=== PATIENT | male | born 1985 | race Caucasian/White ===

== ENCOUNTER → 2021-12-27 | Outpatient (CLI) | payer MEDICAID, SELFPAY ==
[2021-12-27 16:55] LABS: Hematocrit 45.2 % (40-54); Hemoglobin 14.8 g/dL (13.0-16.5); Mean Corp Hgb Conc 32.7 g/dL (32-36); Mean Corpuscular Hgb 29.9 pg (27.0-32.0); Mean Corpuscular Volume 91.3 fL (80-94); Mean Platelet Vol. 9.3 fl (6.2-12.0); Platelet Count 270 K/mm3 (150-450); RBC Distribution Width CV 13.4 % (11.6-14.6); RBC Distribution Width SD 45.1 fl (35.1-43.9); Red Blood Count 4.95 M/mm3 (4.6-6.2); White Blood Count 6.2 K/mm3 (4.4-11.0)
[2021-12-27 17:13] LABS: Hemoglobin A1c 5.5 % (3.8-5.6)
[2021-12-27 17:29] LABS: Vitamin B12 461 pg/mL (211-911); Vitamin D,25 Hydroxy 41.3 ng/mL
[2021-12-27 17:36] LABS: ALB/GLOB Ratio 0.9 RATIO (0.9-2.4); AST(SGOT) 17 U/L (15-37); Alanine Aminotransfer ALT/SGPT 33 U/L (16-61); Albumin, Serum 3.8 g/dL (3.2-5.0); Alkaline Phosphatase 69 U/L (45-117); Anion Gap 6 (5-15); BUN 12 mg/dL (7-18); Chloride 102 mmol/L (98-107); Creatinine, Serum 1.09 mg/dL (0.70-1.30); EST Glomerular Filtration Rate 82 mL/min (>60); Est Glom Filt Rate - Afr Amer 99 mL/min (>60); Free T3 3.2 pg/mL (2.18-3.98); Globulin 4.1 g/dL (2.2-4.2); Glucose 140 mg/dL (74-106); Protein, Total 7.9 g/dL (6.4-8.2); Sodium Level 136 mmol/L (136-145); T4 Free Direct 0.88 ng/dL (0.76-1.46); Thyroid Stim Hormone (TSH) 0.99 uIU/mL (0.358-3.74)
== END | disposition home or self-care (01) ==
PROVIDERS: Referring Provider Counselor Mental Health; Visit Provider Counselor Mental Health
DX: F43.10 Post-traumatic stress disorder, unspecified (principal); F33.1 Major depressive disorder, recurrent, moderate
CPT/HCPCS: 36415; 80053; 82306; 82607; 83036; 84439; 84443; 84481; 85027

== ENCOUNTER 2024-06-03 20:44 | Inpatient (IN) | payer MEDICAID, SELFPAY ==
[2024-06-03 20:49] VITALS: BP 154/95; PULSE 105; RESP 18; TEMP 36.9; O2SAT 100; BMI 25.7
[2024-06-03 21:50] LABS: Absolute Lymphocyte Count 2.13 X10^3/uL (0.83-4.51); Absolute Neutrophil Count 2.8 X10^3/uL (2.0-7.7); Basophil# 0.04 X10^3/uL; Basophil% 0.7 % (0-1); Eosinophil# 0.06 X10^3/uL; Eosinophils% 1.1 % (0-5); Hematocrit 43.2 % (40-54); Hemoglobin 15.1 g/dL (13.0-16.5); Lymphocyte # 2.13 X10^3/ul (0.83-4.51); Lymphocyte % 39.4 % (19-41); Mean Corpuscular Hgb 30.4 pg (27.0-32.0); Mean Corpuscular Volume 87.1 fL (80-94); Mean Platelet Vol. 9.3 fl (6.2-12.0); Monocyte# 0.39 X10^3/uL; Monocyte% 7.2 % (0-10); NRBC Flagged by Analyzer 0 % (0-5); Neutrophil # 2.77 X10^3/uL (2.7-7.7); Neutrophil % 51.4 % (47-70); Platelet Count 364 K/mm3 (150-450); RBC Distribution Width CV 13.3 % (11.6-14.6); RBC Distribution Width SD 41.4 fl (35.1-43.9); Red Blood Count 4.96 M/mm3 (4.6-6.2); White Blood Count 5.4 K/mm3 (4.4-11.0)
--- NOTE | 2024-06-03 21:54 | EX.ED.SAOD ---
HPI History of Present Illness Chief Complaint: Substance Abuse Informant: patient Narrative Narrative: Presents here for assistance detox off of his benzodiazepine. History of PTSD and anxiety. Reported got a DUI this past October he is going to serve time in long-term in 1 month. He is coordinating with his psychiatrist. He states long-term would not allow him to have his Xanax. He states he is on the 1 mg twice daily however he notes better control symptoms when he takes half a tab every 6 hours. He took his last dose 2 PM 7 hours ago. He states in 2021 in [place] he ran out of his medications and up with withdrawal seizures and took him a year to recover. He denies alcohol. Denies any current tremors nausea vomiting or sweats. Of note his psychiatrist did call in the ED earlier for discussion for plan detox off his Xanax. Prior similar symptoms: Yes PFSH PFSH Medical History PTSD (post-traumatic stress disorder) Anxiety Depression Home Medications ?Medication ?Instructions ?Recorded ?Last Taken ?Type alprazolam 1 mg tablet 1 mg PO BID 06/03/24 Unknown History atomoxetine 60 mg capsule 60 mg PO DAILY 06/03/24 Unknown History clonidine HCl 0.1 mg tablet 0.1 mg PO BID 06/03/24 Unknown History gabapentin 300 mg capsule 300 mg PO TID 06/03/24 Unknown History trazodone 50 mg tablet 50 mg PO QHS 06/03/24 Unknown History Allergy/AdvReac Type Severity Reaction Status Date / Time No Known Allergies Allergy Verified 06/03/24 20:51 Social History Smoking Status: Current every day smoker tobacco type: e-cigarettes ROS ROS ED Constitutional Constitutional ED: Denies chills, fever(s) or sweats Eyes Eyes: Denies change in vision ENT ENT ED: Denies dysphagia or sore throat Cardiovascular Cardiovascular: Denies chest pain, leg edema, palpitations or racing heartbeat Respiratory/Chest Respiratory/Chest: Denies cough, dyspnea or dyspnea on exertion Gastrointestinal Gastrointestinal: Denies abdominal pain, diarrhea, nausea or vomiting Genitourinary Genitourinary ED: Denies dysuria, hematuria or urinary frequency Musculoskeletal Musculoskeletal: Denies back pain, extremity pain or neck pain Integumentary Denies rash or wounds Neurologic Neurologic: Denies headache(s), paresthesias or weakness EXAM Physical Exam Const Vital Signs: 06/03/24 20:49 06/03/24 22:09 Temperature 98.4 F 98 F Temperature Source Oral Pulse Rate 105 H 110 H Respiratory Rate 18 17 Blood Pressure 154/95 H 137/90 H Blood Pressure Mean 114 105 Pulse Ox 100 97 Oxygen Delivery Method Room Air Positive well nourished and well developed General Appearance ED: well developed and NAD HEENT Reports moist mucous membranes normocephalic and atraumatic Eyes EOMs intact bilaterally and conjunctivae normal General Eye ED: Yes normal appearance of both eyes Neck no lymphadenopathy and supple General: Negative for tenderness Chest Wall Chest: Negative for tenderness Resp normal respiratory effort and normal air movement Effort and Inspection: symmetric chest movement; Negative for respiratory distress Cardio regular rhythm and no murmurs Rate: tachycardic Peripheral Pulses: pulses 2+ throughout GI normal to inspection, nondistended, normoactive bowel sounds and non-tender Palpation: Negative for guarding or rebound tenderness present Back/Spine no CVA tenderness and no thoracic nor lumbar tenderness Extremity normal to inspection General Extremety ED: Negative for edema or tenderness General Extremity: Negative for edema Neuro oriented x3 and no sensory deficits noted Sensorium / Orientation: awake and alert Skin no rashes or lesions noted and no wounds MDM MDM MDM Narrative Medical decision making narrative: Interventions / MDM: Differential diagnosis: Benzodiazepine dependence, history of withdrawal seizure Diagnosis considered but do not suspect: N/A My EKG interpretation: N/A Imaging independently reviewed and interpreted by myself: N/A External documents reviewed: N/A Test considered but not ordered:N/A ED course: Patient nontoxic no current withdrawal symptoms. He is here to help detox for plan incarceration. Will check medical clearance labs. Labs stable. Alcohol negative. Toxicology urine with benzodiazepine. I discussed with hospitalist Dr. Blake for admission. Re-evaluation: stable Disposition discussed with patient/family/significant other: Patient Case discussed with consulting clinician: Hospitalist This note was generated with [employer] dictation software. It may contain incorrect words, spelling, and punctuation that were not noted in checking the note before signing. Lab Data Labs: Laboratory Results - last 24 hr 06/03/24 06/03/24 21:28 21:35 WBC 5.4 RBC 4.96 Hgb 15.1 Hct 43.2 MCV 87.1 MCH 30.4 MCHC 35.0 RDW Std Deviation 41.4 RDW Coeff of Ramez 13.3 Plt Count 364 MPV 9.3 Immature Gran % (Auto) 0.200 Neut % (Auto) 51.4 Lymph % (Auto) 39.4 [place] % (Auto) 7.2 Eos % (Auto) 1.1 Baso % (Auto) 0.7 Absolute Neuts (auto) 2.8 Absolute Lymphs (auto) 2.13 Nucleated RBC % 0 Sodium 136 Potassium 3.9 Chloride 103 Carbon Dioxide 28.0 Anion Gap 5 BUN 6 L Creatinine 0.94 Estim Creat Clear Calc 111.10 Est GFR (MDRD) Af Amer 116 Est GFR (MDRD) Non-Af 96 BUN/Creatinine Ratio 6.4 L Glucose 105 Calcium 9.3 Total Bilirubin 0.60 AST 17 ALT 30 Alkaline Phosphatase 63 Total Protein 8.2 Albumin 4.5 Globulin 3.7 Albumin/Globulin Ratio 1.2 Urine Opiates Screen NEGATIVE Urine Methadone Screen NEGATIVE Ur Barbiturates Screen NEGATIVE Ur Phencyclidine Scrn NEGATIVE Ur Amphetamines Screen NEGATIVE MDMA (Ecstasy) Screen NEGATIVE U Benzodiazepines Scrn POSITIVE H Urine Cocaine Screen NEGATIVE U Cannabinoids Screen NEGATIVE Ur Drug Screen Comment Ethyl Alcohol < 3.0 Discharge Plan Dx/Rx/DC Orders Clinical Impression: Benzodiazepine dependence, Anxiety, Post traumatic stress disorder Disposition Disposition: Acute Care Hospital [facility] Discharge Date/Time: 06/03/24 22:32
--- NOTE | 2024-06-03 22:06 | PCM.HP.STD ---
HPI - General General Date of Admission: 06/03/24 Date of Service: 06/03/24 Chief Complaint: Benzodiazepine detox HPI Narrative ENEIDA COFFEY, is a 39 M who presented to [facility] ED on 06/03/2024 for benzodiazepine detoxification. Patient has history of PTSD and anxiety and follows with psychiatry. Has been on Xanax for many years. Has been on 2 mg/day dosing for the past 3 years. He recently has been taking it as 0.5 mg 4 times daily. Patient got a DUI this past October and is going to serve retirement time in 1 month, and they will not allow him to have Xanax. Patient came in for assistance with detox off Xanax. He states that in 2021 he was in [place] and ran out of his Xanax and subsequently had severe withdrawal symptoms with hallucinations and a withdrawal seizure. His last dose of Xanax was at 2 PM on 06/03. States he will start to have withdrawal symptoms about 24 hours after coming off benzodiazepines. Given desire for detox, hospitalist was contacted for admission. I saw the patient at bedside in the ED. Patient was pleasant and sitting up comfortably in bed and conversing normally. He reported feeling mildly anxious currently but denied any tremors, nauseousness or sweats. Denied any other withdrawal symptoms currently. Had mild tachycardia with heart rate in the low 100s but was otherwise hemodynamically stable. Labs were unremarkable. Will be admitted for further management. REPLACED BY [facility] Medical History PTSD (post-traumatic stress disorder) Anxiety Depression Home Medications ?Medication ?Instructions ?Recorded ?Last Taken ?Type alprazolam 1 mg tablet 1 mg PO BID 06/03/24 Unknown History atomoxetine 60 mg capsule 60 mg PO DAILY 06/03/24 Unknown History clonidine HCl 0.1 mg tablet 0.1 mg PO BID 06/03/24 Unknown History gabapentin 300 mg capsule 300 mg PO TID 06/03/24 Unknown History trazodone 50 mg tablet 50 mg PO QHS 06/03/24 Unknown History Allergy/AdvReac Type Severity Reaction Status Date / Time No Known Allergies Allergy Verified 06/03/24 20:51 Social History Smoking Status: Current every day smoker tobacco type: e-cigarettes ROS Constitutional Constitutional: Denies chills, fatigue, fever(s) or weakness Eyes Eyes: Denies change in vision Cardiovascular Cardiovascular: Denies chest pain Respiratory/Chest Respiratory/Chest: Denies shortness of breath at rest Gastrointestinal Gastrointestinal: Denies abdominal pain, constipation, diarrhea, nausea or vomiting Neurologic Neurologic: Denies dizziness or headache(s) Psychiatric Psychiatric: Reports anxiety Vital Signs Vital Signs Vital Signs: 06/03/24 20:49 Temperature 98.4 F Temperature Source Oral Pulse Rate 105 H Respiratory Rate 18 Blood Pressure 154/95 H Blood Pressure Mean 114 Pulse Ox 100 Oxygen Delivery Method Room Air Weight Weight: 81.193 kg Body Mass Index (BMI) 25.7 Physical Exam Const alert, oriented x3, no apparent distress, average body habitus, healthy appearing and well nourished Constitutional Narrative: Pleasant younger male, mildly anxious appearing, otherwise sitting up comfortably in bed, conversing normally, no acute distress. General Appearance: cooperative, comfortable, well kempt and well developed HEENT normocephalic, head/scalp atraumatic, hearing grossly normal bilaterally, nasal mucous membranes and turbinates normal and moist oral mucous membranes Eyes PERRL, EOMs intact bilaterally and conjunctivae normal Neck full ROM Chest inspection of chest normal Resp normal respiratory effort, normal air movement, no use of accessory muscles and clear to auscultation bilaterally Cardio regular rate, regular rhythm, no murmurs and peripheral pulses 2+ throughout GI normal to inspection, nondistended, normoactive bowel sounds, soft to palpation, non-tender and non-distended Back/Spine normal ROM Extremity normal to inspection, full ROM and no pedal edema Skin no rashes or lesions noted Psych mental status grossly normal Mood & Affect: anxious Results Lab / Micro Data 06/03/24 21:35 06/03/24 21:35 Labs: Laboratory Results - last 24 hr 06/03/24 21:28: Ur Drug Screen Comment 06/03/24 21:35: WBC 5.4, RBC 4.96, Hgb 15.1, Hct 43.2, MCV 87.1, MCH 30.4, MCHC 35.0, RDW Std Deviation 41.4, RDW Coeff of Ramez 13.3, Plt Count 364, MPV 9.3, Immature Gran % (Auto) 0.200, Neut % (Auto) 51.4, Lymph % (Auto) 39.4, [place] % (Auto) 7.2, Eos % (Auto) 1.1, Baso % (Auto) 0.7, Absolute Neuts (auto) 2.8, Absolute Lymphs (auto) 2.13, Nucleated RBC % 0 Assessment & Plan Assessment/Plan (1) Benzodiazepine dependence: (2) Desire for detoxification: PLAN: Plan Patient is a 39-year-old male who presented [facility] ED on 06/03/2024 for benzodiazepine detoxification. 1. Benzodiazepine dependence with desire for detoxification, reported history of severe benzodiazepine withdrawal with withdrawal seizures ? Admit under inpatient status to [facility]. Patient taking 0.5 mg of Xanax 4 times daily for 2 mg daily total. Low risk of having significant withdrawal symptoms in tapering off Xanax at this dose. Will continue patient's home gabapentin, clonidine and trazodone. Other as needed medications ordered per benzodiazepine withdrawal order set. CIWA protocol ordered without any medications; would avoid giving any benzodiazepines to patient unless absolutely needed. 2. Anxiety/PTSD ? Follows with outpatient psychiatry. States he has been on an SSRI in the past but it was not effective for him. Medication management while here as above. DVT prophylaxis: Low risk, ambulate CODE STATUS: Full code, verified Expected disposition: Home, 2 to 3 days Total clinical time spent by myself addressing the patient's medical issues, reviewing all the data, and collaborating with patient's care team: 55 minutes. Charges/Coding Visit Charges Inpatient E&M: 34828 Init Hosp L2
[2024-06-03 22:09] VITALS: BP 137/90; PULSE 110; RESP 17; TEMP 36.6; O2SAT 97
[2024-06-03 22:10] LABS: Amphetamine Urine VISTA NEGATIVE (<1000 ng/mL); Barbiturate Urine VISTA NEGATIVE (< 200 ng/mL); Benzodiazepine Urine VISTA POSITIVE (< 200 ng/mL); Cocaine Urine VISTA NEGATIVE (< 300 ng/mL); Ecstacy Urine VISTA NEGATIVE (< 500 ng/mL); Methadone Urine VISTA NEGATIVE (< 300 ng/mL); PCP Urine VISTA NEGATIVE (< 25 ng/mL); THC Urine VISTA NEGATIVE (< 50 ng/mL); Vista UDS pH Range 6
[2024-06-03 22:24] LABS: Alcohol, Blood (Medical)-Serum < 3.0 mg/dL
[2024-06-03 22:29] LABS: ALB/GLOB Ratio 1.2 RATIO (0.9-2.4); AST(SGOT) 17 U/L (15-37); Alanine Aminotransfer ALT/SGPT 30 U/L (16-61); Albumin, Serum 4.5 g/dL (3.2-5.0); Alkaline Phosphatase 63 U/L (45-117); Anion Gap 5 (5-15); BUN 6 mg/dL (7-18); BUN/Creat Ratio 6.4 RATIO (10-20); Calcium,Total 9.3 mg/dL (8.5-10.1); Chloride 103 mmol/L (98-107); Creatinine, Serum 0.94 mg/dL (0.70-1.30); EST Glomerular Filtration Rate 96 mL/min (>60); Est Glom Filt Rate - Afr Amer 116 mL/min (>60); Globulin 3.7 g/dL (2.2-4.2); Glucose 105 mg/dL (74-106); Potassium 3.9 mmol/L (3.5-5.1); Protein, Total 8.2 g/dL (6.4-8.2); Sodium Level 136 mmol/L (136-145)
[2024-06-03 22:51] VITALS: BMI 26.0
[2024-06-03] MEDS: hydrOXYzine PAM 25 MG Capsule 50 MG PO (23:25)
[2024-06-03] MEDS: Gabapentin 300 MG Capsule PO (23:25)
[2024-06-03] MEDS: cloNIDine HCl 0.1 MG Tablet PO (23:26)
[2024-06-03] MEDS: traZODone 50 MG Tablet PO (23:27)
[2024-06-03 23:31] VITALS: BP 136/101; PULSE 85; RESP 14; TEMP 36.9; O2SAT 99
[2024-06-03] MEDS: Nicotine Polacrilex 2 MG GUM PO (23:59)
[2024-06-04 05:30] VITALS: BP 124/99; PULSE 76; RESP 12; TEMP 36.8; O2SAT 99
[2024-06-04] MEDS: Gabapentin 300 MG Capsule PO (05:49)
[2024-06-04] MEDS: Acetaminophen 325 MG Tablet 650 MG PO ×3 (06:58→22:04)
[2024-06-04] MEDS: Nicotine Polacrilex 2 MG GUM PO ×4 (07:00→21:26)
[2024-06-04] MEDS: hydrOXYzine PAM 25 MG Capsule 50 MG PO ×3 (07:02→21:31)
--- NOTE | 2024-06-04 07:27 | PN.HOSP_ITS ---
Reason for Visit Reason for Visit: Diagnoses Sedative, hypnotic or anxiolytic dependence, uncomplicated (06/03/24) Subjective Subjective Complaining of migraine. States he commonly gets migraines when he withdrawals from BZDs. Had been on long-term BZDs through a psychiatrist. That psychiatrist is now on leave and he has been referred to another, whom he has seen once. Per the patient, this provider advised him to come to the ED to withdrawal safely from because it would be safter than tapering off slowly. Pt wanted to do this because he has a 30-day sentence on 07/03. Objective Data Objective Data Vital Signs: Vital Signs Temp Pulse Resp BP Pulse Ox O2 Del Method 36.8 C 76 12 124/99 H 99 Room Air 06/04/24 05:30 06/04/24 05:30 06/04/24 05:30 06/04/24 05:30 06/04/24 05:30 06/04/24 05:30 Oxygen Delivery Method Room Air Weight: 82.3 kg Body Mass Index (BMI) 26.0 Lab / Micro Data 06/03/24 21:35 06/03/24 21:35 Labs: Laboratory Results - last 24 hr 06/03/24 21:28: Urine Opiates Screen NEGATIVE, Urine Methadone Screen NEGATIVE, Ur Barbiturates Screen NEGATIVE, Ur Phencyclidine Scrn NEGATIVE, Ur Amphetamines Screen NEGATIVE, MDMA (Ecstasy) Screen NEGATIVE, U Benzodiazepines Scrn POSITIVE H, Urine Cocaine Screen NEGATIVE, U Cannabinoids Screen NEGATIVE, Ur Drug Screen Comment 06/03/24 21:35: WBC 5.4, RBC 4.96, Hgb 15.1, Hct 43.2, MCV 87.1, MCH 30.4, MCHC 35.0, RDW Std Deviation 41.4, RDW Coeff of Ramez 13.3, Plt Count 364, MPV 9.3, Immature Gran % (Auto) 0.200, Neut % (Auto) 51.4, Lymph % (Auto) 39.4, [place] % (Auto) 7.2, Eos % (Auto) 1.1, Baso % (Auto) 0.7, Absolute Neuts (auto) 2.8, Absolute Lymphs (auto) 2.13, Nucleated RBC % 0, Sodium 136, Potassium 3.9, Chloride 103, Carbon Dioxide 28.0, Anion Gap 5, BUN 6 L, Creatinine 0.94, Estim Creat Clear Calc 111.10, Est GFR (MDRD) Af Amer 116, Est GFR (MDRD) Non-Af 96, B UN/Creatinine Ratio 6.4 L, Glucose 105, Calcium 9.3, Total Bilirubin 0.60, AST 17, ALT 30, Alkaline Phosphatase 63, Total Protein 8.2, Albumin 4.5, Globulin 3.7, Albumin/Globulin Ratio 1.2, Ethyl Alcohol < 3.0 Physical Exam Const alert and no apparent distress HEENT head/scalp atraumatic and moist oral mucous membranes Resp normal respiratory effort, no retractions, no use of accessory muscles and clear to auscultation bilaterally Cardio regular rate, regular rhythm, S1 normal heart sound and S2 normal heart sound GI normal to inspection, nondistended, normoactive bowel sounds, soft to palpation, non-tender and non-distended Extremity normal to inspection Assessment & Plan Assessment/Plan (1) Benzodiazepine dependence: (2) Desire for detoxification: PLAN: Plan Benzodiazepine dependence with desire for detoxification, reported history of severe benzodiazepine withdrawal with withdrawal seizures * Reveiwed ARELI pt last received a Rx for alprazolam on 02/28/2024 for #180 1mg. Per the patient, that provider (Arturo Bran) is on leave (reviewed medical board action, no active cases). His new provider advised him come to the hospital to get treated. Migraine * PRN ketorolac. If refractory, dexamethasone 10mg x1. Anxiety/PTSD * Follows with outpatient psychiatry. States he has been on an SSRI in the past but it was not effective for him. Medication management while here as above. VTE prophylaxis: low-risk. Greater than 50 minutes of which greater than 50% of the time was couseling the patient at bedside about BZD treatment, migraine treatment. Charges/Coding Visit Charges Inpatient E&M: 98094 Subs Hosp L3
[2024-06-04 08:10] VITALS: O2SAT 98
[2024-06-04 08:31] VITALS: BP 125/91; PULSE 70; RESP 18; TEMP 36.4; O2SAT 100
[2024-06-04] MEDS: cloNIDine HCl 0.1 MG Tablet PO ×2 (08:47→21:26)
[2024-06-04] MEDS: Folic Acid 1 MG Tablet PO (08:47)
[2024-06-04] MEDS: Thiamine Hydrochloride 100 MG Tablet PO (08:48)
[2024-06-04] MEDS: Ketorolac 15 MG/ML Vial IV ×2 (11:05→17:46)
[2024-06-04] MEDS: Phenobarbital 32.4 MG Tablet PO ×4 (11:05→22:03)
[2024-06-04] MEDS: 0.9% Saline Lock 10 ML Syringe IV (17:46)
[2024-06-04] MEDS: traZODone 50 MG Tablet PO (21:25)
[2024-06-04] MEDS: FLU VACC 2024-25(6MOS UP)/PF 45 MCG/0.5 ML SYRINGE IM (21:31)
[2024-06-05] MEDS: traZODone 50 MG Tablet PO (00:14)
[2024-06-05] MEDS: Phenobarbital 32.4 MG Tablet PO ×6 (02:12→22:16)
[2024-06-05] MEDS: hydrOXYzine PAM 25 MG Capsule 50 MG PO ×4 (02:12→22:16)
[2024-06-05] MEDS: Ketorolac 15 MG/ML Vial IV ×3 (02:19→22:22)
[2024-06-05] MEDS: 0.9% Saline Lock 10 ML Syringe IV ×3 (02:19→22:22)
[2024-06-05 06:07] VITALS: BP 146/86; PULSE 69; RESP 17; TEMP 36.4; O2SAT 98
[2024-06-05 08:01] VITALS: O2SAT 97
[2024-06-05 08:27] VITALS: BP 118/69; PULSE 70; RESP 18; TEMP 36.8; O2SAT 100
[2024-06-05] MEDS: Folic Acid 1 MG Tablet PO (09:13)
[2024-06-05] MEDS: cloNIDine HCl 0.1 MG Tablet PO ×2 (09:13→22:15)
[2024-06-05] MEDS: Nicotine Polacrilex 2 MG GUM PO ×3 (09:14→20:08)
[2024-06-05] MEDS: Thiamine Hydrochloride 100 MG Tablet PO (09:14)
--- NOTE | 2024-06-05 12:20 | PN.HOSP_ITS ---
Reason for Visit Reason for Visit: Diagnoses Sedative, hypnotic or anxiolytic dependence, uncomplicated (06/03/24) Subjective Subjective Feeling better. Headache/migraine better. . Objective Data Objective Data Vital Signs: Vital Signs Temp Pulse Resp BP Pulse Ox O2 Del Method 36.8 C 70 18 118/69 100 Room Air 06/05/24 08:27 06/05/24 08:27 06/05/24 08:27 06/05/24 08:27 06/05/24 08:27 06/05/24 08:27 Oxygen Delivery Method Room Air Weight: 82.3 kg Body Mass Index (BMI) 26.0 Intake & Output: Intake and Output for Last 24 Hours 06/03/24 06/04/24 06/05/24 23:59 23:59 23:59 Intake Total 950 / 950 880 / 880 Balance 950 / 950 880 / 880 Lab / Micro Data 06/03/24 21:35 06/03/24 21:35 Physical Exam Const alert and no apparent distress Constitutional Narrative: appears less distressed today. HEENT head/scalp atraumatic and moist oral mucous membranes Resp normal respiratory effort and no retractions Neuro moves all extremities and no focal motor deficits Sensorium / Orientation: awake and alert Psych affect normal Assessment & Plan Assessment/Plan (1) Benzodiazepine dependence: (2) Desire for detoxification: PLAN: Plan Benzodiazepine dependence with desire for detoxification, reported history of severe benzodiazepine withdrawal with withdrawal seizures * Reveiwed OARRS, pt last received a Rx for alprazolam on 02/28/2024 for #180 1mg. Per the patient, that provider (Arturo Bran) is on leave (reviewed medical board action, no active cases). His new provider advised him come to the hospital to get treated. * on phenobarbital taper (started on 06/04). I anticipate pt will require another 2 days in the hospital before he medically ready for discharge. Migraine * PRN ketorolac. If refractory, dexamethasone 10mg x1. Anxiety/PTSD * Follows with outpatient psychiatry. States he has been on an SSRI in the past but it was not effective for him. Medication management while here as above. VTE prophylaxis: low-risk. Charges/Coding Visit Charges Inpatient E&M: 25747 Subs Hosp L2
[2024-06-05] MEDS: Acetaminophen 325 MG Tablet 650 MG PO (14:49)
[2024-06-05 14:53] VITALS: BP 135/78; PULSE 72; RESP 18; TEMP 37.1; O2SAT 100
--- NOTE | 2024-06-05 18:56 | ADDICTION ---
Pt was met with to complete the RAMP assessment, DUDIT, AUDIT, Mental Status, D/C Plan, ASAM. Pt states he is discharging home to [place] where his mother lives. Pt admits he is concerned about residual w/d sxs once he is discharged from the hospital d/t his hx of having long lasting w/d sxs and seizures beyond day four of past w/d episodes. Pt to follow up with the referring psychiatrist. Pt agreed to call [facility] to schedule an appt for assessment to begin EMDR therapy for PTSD sxs, once he finishes his nursing home sentence. Pt was provided resource packet and informed of aftercare options but pt declined d/t upcoming nursing home.
[2024-06-05 20:00] VITALS: O2SAT 99
[2024-06-05 21:00] VITALS: BP 132/73; PULSE 83; RESP 16; TEMP 36.9; O2SAT 99
[2024-06-05] MEDS: traZODone 100 MG Tablet PO (22:16)
[2024-06-06 02:00] VITALS: BP 130/71; PULSE 80; RESP 16; TEMP 36.6; O2SAT 98
[2024-06-06] MEDS: Phenobarbital 32.4 MG Tablet PO ×5 (02:05→17:58)
[2024-06-06 06:00] VITALS: BP 136/85; PULSE 92; RESP 16; TEMP 36.7; O2SAT 99
[2024-06-06] MEDS: Acetaminophen 325 MG Tablet 650 MG PO ×3 (06:19→20:39)
[2024-06-06 06:37] VITALS: O2SAT 98
[2024-06-06 10:00] VITALS: BP 129/78; PULSE 84; RESP 16; TEMP 36.6; O2SAT 98
[2024-06-06] MEDS: cloNIDine HCl 0.1 MG Tablet PO ×2 (10:04→20:38)
[2024-06-06] MEDS: Folic Acid 1 MG Tablet PO (10:04)
[2024-06-06] MEDS: Thiamine Hydrochloride 100 MG Tablet PO (10:05)
[2024-06-06] MEDS: Nicotine Polacrilex 2 MG GUM PO ×4 (10:16→20:42)
[2024-06-06] MEDS: hydrOXYzine PAM 25 MG Capsule 50 MG PO ×3 (10:18→20:39)
--- NOTE | 2024-06-06 12:05 | PN.HOSP_ITS ---
Reason for Visit Reason for Visit: Diagnoses Sedative, hypnotic or anxiolytic dependence, uncomplicated (06/03/24) Subjective Subjective Feels like he is having some low-grade withdrawal symptoms, but overall, feeling better. Objective Data Objective Data Vital Signs: Vital Signs Temp Pulse Resp BP Pulse Ox O2 Del Method 36.6 C 84 16 129/78 H 98 Room Air 06/06/24 10:00 06/06/24 10:00 06/06/24 10:00 06/06/24 10:00 06/06/24 10:00 06/06/24 10:00 Oxygen Delivery Method Room Air Weight: 82.3 kg Body Mass Index (BMI) 26.0 Intake & Output: Intake and Output for Last 24 Hours 06/04/24 06/05/24 06/06/24 23:59 23:59 23:59 Intake Total 950 / 950 1580 / 2280 700 / 700 Balance 950 / 950 1580 / 2280 700 / 700 Lab / Micro Data 06/03/24 21:35 06/03/24 21:35 Physical Exam Const alert and no apparent distress HEENT head/scalp atraumatic and moist oral mucous membranes Resp normal respiratory effort and no retractions Extremity normal to inspection Neuro Sensorium / Orientation: awake and alert Assessment & Plan Assessment/Plan (1) Benzodiazepine dependence: (2) Desire for detoxification: PLAN: Plan Benzodiazepine dependence with desire for detoxification, reported history of severe benzodiazepine withdrawal with withdrawal seizures * Reveiwed OARRS, pt last received a Rx for alprazolam on 02/28/2024 for #180 1mg. Per the patient, that provider (Arturo Bran) is on leave (reviewed medical board action, no active cases). His new provider advised him come to the hospital to get treated. * on phenobarbital taper (started on 06/04). I anticipate pt will require another 1-2 days in the hospital before he medically ready for discharge. Migraine * resolved * PRN ketorolac. If refractory, dexamethasone 10mg x1. Anxiety/PTSD * Follows with outpatient psychiatry. States he has been on an SSRI in the past but it was not effective for him. Medication management while here as above. VTE prophylaxis: low-risk. Greater than 35 minutes of which greater than 50% of the time was counseling the patient at bedside about the addiction withdrawal treatment and plan just to continue to observe him at least for another day. Charges/Coding Visit Charges Inpatient E&M: 56895 Subs Hosp L2
[2024-06-06] MEDS: 0.9% Saline Lock 10 ML Syringe IV (15:47)
[2024-06-06] MEDS: Ketorolac 15 MG/ML Vial IV (15:48)
[2024-06-06] MEDS: traZODone 100 MG Tablet PO (20:38)
[2024-06-06] MEDS: Dicyclomine 10 MG Capsule 20 MG PO (20:39)
[2024-06-06 20:53] VITALS: BP 139/81; PULSE 72; RESP 16; TEMP 36.4; O2SAT 100
[2024-06-07] MEDS: Phenobarbital 32.4 MG Tablet PO ×5 (00:37→23:16)
[2024-06-07] MEDS: hydrOXYzine PAM 25 MG Capsule 50 MG PO ×4 (00:38→22:34)
[2024-06-07] MEDS: Nicotine Polacrilex 2 MG GUM PO ×6 (00:40→22:34)
[2024-06-07] MEDS: Acetaminophen 325 MG Tablet 650 MG PO (05:50)
[2024-06-07] MEDS: Dicyclomine 10 MG Capsule 20 MG PO (05:50)
[2024-06-07 05:55] VITALS: BP 105/60; PULSE 54; RESP 16; TEMP 36.4; O2SAT 100
[2024-06-07 09:25] VITALS: BP 137/73; PULSE 82; RESP 18; TEMP 36.4; O2SAT 98
[2024-06-07] MEDS: Folic Acid 1 MG Tablet PO (09:27)
[2024-06-07] MEDS: Thiamine Hydrochloride 100 MG Tablet PO (09:28)
[2024-06-07] MEDS: cloNIDine HCl 0.1 MG Tablet PO ×2 (09:28→22:28)
--- NOTE | 2024-06-07 12:32 | PN.HOSP_ITS ---
Reason for Visit Reason for Visit: Diagnoses Sedative, hypnotic or anxiolytic dependence, uncomplicated (06/03/24) Subjective Subjective Yesterday he felt worse: he had a headache (though not as severe as when he initially presented), white noise in his visual field, and abdominal cramping. Objective Data Objective Data Vital Signs: Vital Signs Temp Pulse Resp BP Pulse Ox O2 Del Method 36.4 C L 82 18 137/73 H 98 Room Air 06/07/24 09:25 06/07/24 09:25 06/07/24 09:25 06/07/24 09:25 06/07/24 09:25 06/07/24 09:25 Oxygen Delivery Method Room Air Weight: 82.3 kg Body Mass Index (BMI) 26.0 Intake & Output: Intake and Output for Last 24 Hours 06/05/24 06/06/24 06/07/24 23:59 23:59 23:59 Intake Total 1580 / 2280 1300 / 1300 Balance 1580 / 2280 1300 / 1300 Lab / Micro Data 06/03/24 21:35 06/03/24 21:35 Physical Exam Const alert and no apparent distress Constitutional Narrative: up in bed pleasant. afebrile. HEENT head/scalp atraumatic and moist oral mucous membranes Assessment & Plan Assessment/Plan (1) Benzodiazepine dependence: (2) Desire for detoxification: PLAN: Plan Benzodiazepine dependence with desire for detoxification, reported history of severe benzodiazepine withdrawal with withdrawal seizures * Reveiwed OARRJaclyn, pt last received a Rx for alprazolam on 02/28/2024 for #180 1mg. Per the patient, that provider (Arturo Bran) is on leave (reviewed medical board action, no active cases). His new provider advised him come to the hospital to get treated. * on phenobarbital taper (started on 06/04). Pt felt worse on 06/06 (though not as bad as when I started the phenobarbital). Monitor another day, hopefully well enough to go home in 1-2 more days. * Pt to report to [facility] later this month for OWI (part of the reason why he seeking withdrawal treatment now). After his 30-day sentence, he will follow up with [facility]. Migraine * resolved * PRN ketorolac. If refractory, dexamethasone 10mg x1. Anxiety/PTSD * Follows with outpatient psychiatry. States he has been on an SSRI in the past but it was not effective for him. Medication management while here as above. * His new psychiatrist apparently did not want to taper him off the BZDs he was on from the prior psychiatrist and directed him to come here. He will need to follow up with this provider for further psychiatric help as outpt. VTE prophylaxis: low-risk. Greater than 35 minutes of which greater than 50% of the time was counseling the patient at bedside about the addiction withdrawal treatment and plan just to continue to observe him at least for another day. Charges/Coding Visit Charges Inpatient E&M: 66905 Subs Hosp L2
[2024-06-07 14:24] VITALS: BP 120/75; PULSE 72; RESP 18; TEMP 36.7; O2SAT 98
[2024-06-07] MEDS: Bisacodyl 5 MG Tablet 10 MG PO (14:58)
[2024-06-07 22:24] VITALS: BP 152/93; PULSE 96; RESP 16; TEMP 36.6; O2SAT 98
[2024-06-07] MEDS: traZODone 100 MG Tablet PO (22:28)
[2024-06-08] MEDS: Phenobarbital 32.4 MG Tablet PO ×2 (05:18→14:21)
[2024-06-08 05:19] VITALS: BP 133/96; PULSE 64; RESP 16; TEMP 36.6; O2SAT 98
[2024-06-08] MEDS: Nicotine Polacrilex 2 MG GUM PO ×2 (05:24→22:11)
[2024-06-08] MEDS: hydrOXYzine PAM 25 MG Capsule 50 MG PO ×3 (05:24→22:11)
[2024-06-08] MEDS: Acetaminophen 325 MG Tablet 650 MG PO (05:24)
[2024-06-08] MEDS: Thiamine Hydrochloride 100 MG Tablet PO (10:40)
[2024-06-08] MEDS: cloNIDine HCl 0.1 MG Tablet PO ×2 (10:40→22:11)
[2024-06-08] MEDS: Folic Acid 1 MG Tablet PO (10:40)
[2024-06-08 10:56] VITALS: BP 139/81; PULSE 88; RESP 16; TEMP 36.8; O2SAT 98
--- NOTE | 2024-06-08 15:00 | PN.HOSP_ITS ---
Reason for Visit Reason for Visit: Diagnoses Sedative, hypnotic or anxiolytic dependence, uncomplicated (06/03/24) Objective Data Objective Data Vital Signs: Vital Signs Temp Pulse Resp BP Pulse Ox O2 Del Method 98.3 F 88 16 139/81 H 98 Room Air 06/08/24 10:56 06/08/24 10:56 06/08/24 10:56 06/08/24 10:56 06/08/24 10:56 06/08/24 10:56 Oxygen Delivery Method Room Air Weight: 181 lb 7.047 oz Body Mass Index (BMI) 26.0 Intake & Output: Intake and Output for Last 24 Hours 06/06/24 06/07/24 06/08/24 23:59 23:59 23:59 Intake Total 1300 / 1300 Balance 1300 / 1300 Lab / Micro Data 06/03/24 21:35 06/03/24 21:35 Physical Exam Narrative Seen and examined. Patient states he still has visual hallucinations. He is on alprazolam since 2008. He was using Xanax 4 mg/day has cut down to 2 mg/day recently. Denies neuro use or IVDA Physical exam General: Alert, Oriented x3, Cooperative HEENT: Atraumatic, PERRLA, EOMI, Normocephalic Oral: No Gingival or Mucosal Lesions/ Ulcerations Neck: Supple, No JVD, Negative Carotid Bruits Chest wall/Lungs: Air entry diminished in bilateral lung bases. No crepitation/rhonchi Cardiovascular: Regular rate, Regular Rhythm, Normal S1, Normal S2, No M/G/R Abdomen: Bowel Sounds Present, Soft, Non Tender, Non-Distended : No dysuria. No renal angle tenderness. No suprapubic tenderness. Extremities: No edema, Capillary Refill Less than 3 Seconds Skin: No rashes, No breakdown Musculoskeletal: No Tenderness to Palpation of Joints or Extremities Neurological: Cranial nerves II-XII grossly intact, DTR 2+/4. No acute focal neurological deficit. No seizures Psych/Mental Status: Anxiety Assessment & Plan Assessment/Plan (1) Benzodiazepine dependence: (2) Desire for detoxification: PLAN: Plan 1. Acute benzodiazepine withdrawal syndrome with history of chronic benzodiazepine use disorder, dependence: Patient is admitted on MedSurg floor * OARRS reviewed, pt last received a Rx for alprazolam on 02/28/2024 for #180 1mg. * Patient on phenobarbital based order set along with other adjunctive medications gabapentin, Bentyl, Vistaril, clonidine, Klonopin as needed for alcohol withdrawal symptom control. Patient is on thiamine and folate acid. manager assurance 180 consulted. * Discussed with the Miguel Jacobson. The pt to report to nursing home later this month. He will follow-up with Miguel 2. Chronic migraine * resolved * PRN ketorolac. 3. Anxiety/PTSD * Follows with outpatient psychiatry. States he has been on an SSRI in the past but it was not effective for him. Already on a lot of as needed medications as mentioned above * Will need to follow-up psychiatry VTE prophylaxis: low-risk. Charges/Coding Visit Charges Inpatient E&M: 90753 Subs Hosp L2
--- NOTE | 2024-06-08 16:15 | CHAPLAIN ---
Type of Pastoral Visit _x__ Initial Visit ___ Follow-up Visit ___ On-call Visit ___ General Patient Visit ___ Spiritual Assessment ___ Family Conference ___ Bereavement ___ Rapid Response ___ Code Blue ___ Other (describe below) Pastoral Care Referral From ___ Patient ___ Family _x__ Nurse ___ Physician ___ Political Science Faculty Member ___ Tinsmith Helper ___ Other (describe below) Sacrament/Intervention _x__ Active listening ___ Anointing ___ Roman Catholic ___ Bereavement ___ Communion _x__ Ramandeep exploration ___ _x__ Life review _x__ Prayer ___ Reconciliation ___ Sacrament of Sick _x__ Supportive presence ___ Wedding ___ Other (describe below) Pastoral Comments RN requested a visit to this patient as she described his anxiety and worry about his future; offered support to the patient who readily agreed to the visit and stated that I need a diversion and to focus on something else; pt gives some life review indicating that he has had psychiatric counseling and medications, that he has PTSD, 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; pt admits to anxiety about going to retirement soon and that he has had seizures, panic attacks, and concerns about his withdrawals; pt given opportunity to talk and vent; pt is offered affirmation of his person and his value in life; pt is given assurance that the things he faces in life are common to people and that finding his support system and being open to healing and coping measures can be beneficial to his life and functioning; pt states that he is not sikh but is somewhat spiritual and agrees to prayer support; pt is asked about his emotional support system which is limited but he realizes that people have reached out of him, now if he would accept it is a question
[2024-06-08 17:00] VITALS: BP 132/88; PULSE 86; RESP 18; TEMP 36.7; O2SAT 98
[2024-06-08 22:09] VITALS: BP 169/100; PULSE 76; RESP 16; TEMP 36.7; O2SAT 98
[2024-06-08] MEDS: traZODone 100 MG Tablet PO (22:11)
[2024-06-09] MEDS: hydrOXYzine PAM 25 MG Capsule 50 MG PO (05:34)
[2024-06-09] MEDS: Nicotine Polacrilex 2 MG GUM PO (05:34)
[2024-06-09 05:36] VITALS: BP 116/79; PULSE 74; RESP 16; TEMP 36.8; O2SAT 97
[2024-06-09] MEDS: Folic Acid 1 MG Tablet PO (08:54)
[2024-06-09] MEDS: cloNIDine HCl 0.1 MG Tablet PO (08:54)
[2024-06-09] MEDS: Thiamine Hydrochloride 100 MG Tablet PO (08:54)
--- NOTE | 2024-06-09 10:27 | DCINST_ITS ---
Discharge Instructions Diet Discharge Diet: No restrictions DC O2, CPAP, BIPAP needs Additional Home O2 Discharge instructions: No Dressing / Incision Discharge Activity: Return to Normal Activity Weight Bearing Status: Weight bearing as tolerated Dressing / Incision Call your doctor if you observe: Fever of 101 or Higher, Coldness, Increased Pain, Numbness or Tingling, Change in Color, Inability to urinate, Inability to have a bowel movement, Shortness of breath, Dizziness, Fainting spells, Swelling in the ankles, Chest pain, Prolonged hiccupping, Increased palpitations (irregular heartbeat) and Calf discomfort Follow Up Care When: IN 2 WEEKS Test Results: Test results from this visit will be discussed in further detail at your follow- up appointment, if applicable. Discharge Plan Admission Admit Date/Time: 06/03/24 22:14 Primary Reason for Your Visit: BZP dependance and withdrawal Attending Provider: Murray Krause Primary Care Provider: PANDA STEWART Consulting Providers: Navjot Blake; Harsha Arzate Discharge Orders/Prescriptions Prescriptions: New nicotine 14 mg/24 hr Patch 24 Hour 14 mg transdermal DAILY 28 Days Qty: 28 0RF thiamine HCl (vitamin B1) 100 mg Tablet 100 mg PO DAILYCM 30 Days Qty: 30 2RF folic acid 1 mg Tablet 1 mg PO DAILY@0800 30 Days Qty: 30 2RF Continued clonidine HCl 0.1 mg tablet 0.1 mg PO BID trazodone 50 mg tablet 50 mg PO QHS gabapentin 300 mg capsule 300 mg PO TID atomoxetine 60 mg capsule 60 mg PO DAILY Discontinued alprazolam 1 mg tablet 1 mg PO BID Referrals / Follow Up: PANDA STEWART [Other] PANDA STEWART [Other] Disposition Disposition (needs filled in before D/C Order can be placed): Home, Self Care
--- NOTE | 2024-06-09 10:30 | DS.PCM_ITS ---
Providers Date of Admission: 06/03/24 Date of Discharge: 06/09/24 Primary Care Physician: PANDA STEWART Reason For Visit: BENZO DETOX Diagnosis Discharge Diagnosis (1) Benzodiazepine dependence: Status: Acute Code(s): F13.20 - Sedative, hypnotic or anxiolytic dependence, uncomplicated (2) Desire for detoxification: Status: Acute Plan This is a 39-year-old gentleman admitted with acute benzodiazepine withdrawal syndrome. He is on alprazolam since 2008. He was using Xanax 4 mg/day has cut down to 2 mg/day recently. Denies IVDA 1. Acute benzodiazepine withdrawal syndrome with history of chronic benzodiazepine use disorder, dependence: Patient is admitted on MedSur floor * OARRS reviewed, pt last received a Rx for alprazolam on 02/28/2024 for #180 1mg. * Patient on phenobarbital based order set along with other adjunctive medications gabapentin, Bentyl, Vistaril, clonidine, Klonopin as needed for alcohol withdrawal symptom control. Patient is on thiamine and folate acid. manager program Miguel consulted. * Discussed with the Miguel Jacobson. The pt to report to skilled nursing later this month. He will follow-up with 180 06/09: Patient is feeling better. Walking within the room. Wants to go home. Discharged. 2. Chronic migraine * resolved * PRN ketorolac. 3. Anxiety/PTSD * Follows with outpatient psychiatry. States he has been on an SSRI in the past but it was not effective for him. Already on a lot of as needed medications as mentioned above * Will need to follow-up psychiatry VTE prophylaxis: low-risk. Discharge medication reconciliation done. Discharge follow-up instructions completed. Discharge process discussed with the patient and all questions were answered to patient's satisfaction. Follow with PCP in 1 to 2 weeks Total time spent, exact 35 minutes on discharge meds reconciliation, examination, coordination of care with nurses and ancillary staff, review of imaging and blood test and discussion with the patient on follow-up instructions. Medications at Discharge Home Medications atomoxetine 60 mg capsule 60 mg PO DAILY 06/03/24 clonidine HCl 0.1 mg tablet 0.1 mg PO BID bp 06/03/24 gabapentin 300 mg capsule 300 mg PO TID pain 06/03/24 trazodone 50 mg tablet 50 mg PO QHS mood/sleep 06/03/24 folic acid 1 mg tablet 1 mg PO DAILY@0800 30 days #30 tabs 06/09/24 nicotine 14 mg/24 hr daily transdermal patch 14 mg transdermal DAILY 28 days #28 ea 06/09/24 thiamine HCl (vitamin B1) 100 mg tablet 100 mg PO DAILYCM 30 days #30 tabs 06/09/24 Physical Exam Narrative Seen and examined. Patient states he still has visual hallucinations. Patient is feeling better. Physical exam General: Alert, Oriented x3, Cooperative HEENT: Atraumatic, PERRLA, EOMI, Normocephalic Oral: No Gingival or Mucosal Lesions/ Ulcerations Neck: Supple, No JVD, Negative Carotid Bruits Chest wall/Lungs: Air entry diminished in bilateral lung bases. No crepitation/rhonchi Cardiovascular: Regular rate, Regular Rhythm, Normal S1, Normal S2, No M/G/R Abdomen: Bowel Sounds Present, Soft, Non Tender, Non-Distended : No dysuria. No renal angle tenderness. No suprapubic tenderness. Extremities: No edema, Capillary Refill Less than 3 Seconds Skin: No rashes, No breakdown Musculoskeletal: No Tenderness to Palpation of Joints or Extremities Neurological: Cranial nerves II-XII grossly intact, DTR 2+/4. No acute focal neurological deficit. No seizures Psych/Mental Status: Normal affect Weight / BMI Weight Weight: 181 lb 7.047 oz Body Mass Index (BMI) 26.0 ABG / Lab / Microbiology Data 06/03/24 21:35 06/03/24 21:35 D/C Instructions Discharge Diet: No restrictions Weight Bearing Status: Weight bearing as tolerated Call your doctor if you observe: Fever of 101 or Higher, Coldness, Increased Pain, Numbness or Tingling, Change in Color, Inability to urinate, Inability to have a bowel movement, Shortness of breath, Dizziness, Fainting spells, Swelling in the ankles, Chest pain, Prolonged hiccupping, Increased palpitations (irregular heartbeat) and Calf discomfort DC O2, CPAP, BIPAP Needs Additional Home O2 Discharge instructions: No DC home with Oxygen: No When: IN 2 WEEKS Meaningful Use Info Meaningful Use Meaningful Use Diagnoses (Choose all that apply): None applicable Ischemic Stroke Statin Dosing Therapy Reference: STATIN DOSE THERAPY REFERENCE: * Patients > 75 years receive moderate or high dose statin therapy. * Patients 75 years or YOUNGER should receive HIGH intensity statin dose unless contraindicated. You will be required to document reason for non-treatment if statin daily dose does not meet guidelines. HIGH DOSE STATIN THERAPY DAILY Atorvastatin > than or = to 40 mg Rosuvastatin > than or = to 20 mg Amlodipine + Atorvastatin > than or = to 2.5/40 mg Ezetimibe + Simvastatin 10/80 mg Simvastatin 80mg Discharge Plan Admission Admit Date/Time: 06/03/24 22:14 Primary Reason for Your Visit: BZP dependance and withdrawal Attending Provider: Murray Krause Primary Care Provider: PANDA STEWART Consulting Providers: Navjot Blake; Harsha Arzate Discharge Orders/Prescriptions Prescriptions: New nicotine 14 mg/24 hr Patch 24 Hour 14 mg transdermal DAILY 28 Days Qty: 28 0RF thiamine HCl (vitamin B1) 100 mg Tablet 100 mg PO DAILYCM 30 Days Qty: 30 2RF folic acid 1 mg Tablet 1 mg PO DAILY@0800 30 Days Qty: 30 2RF Continued clonidine HCl 0.1 mg tablet 0.1 mg PO BID trazodone 50 mg tablet 50 mg PO QHS gabapentin 300 mg capsule 300 mg PO TID atomoxetine 60 mg capsule 60 mg PO DAILY Discontinued alprazolam 1 mg tablet 1 mg PO BID Referrals / Follow Up: PANDA STEWART [Other] PANDA STEWART [Other] Disposition Disposition (needs filled in before D/C Order can be placed): Home, Self Care Charges/Coding Visit Charges Inpatient E&M: 02172 Disch Hosp >30min
--- NOTE | 2024-06-09 11:34 | PHA.DC_ITS ---
Pharmacy [facility] has performed discharge medication reconciliation and counseling for this patient. 1. FOLIC ACID 1MG PO DAILYCM 2. NICOTINE 14MG PATCH TD ONCE DAILY 3. THIAMINE 100MG PO DAILYCM The patient's discharge medication list was reviewed for discrepancies and discrepancies were resolved. The patient was counseled on the following discharge medications and changes in medications for homegoing were reviewed. The Reason for Use, instructions for use, and potential side effects were reviewed for all new medications. The patient's questions regarding all of their medications were answered. The patient was able to verbally demonstrate an understanding of their discharge medications. Medications at Discharge Home Medications atomoxetine 60 mg capsule 60 mg PO DAILY 06/03/24 clonidine HCl 0.1 mg tablet 0.1 mg PO BID bp 06/03/24 gabapentin 300 mg capsule 300 mg PO TID pain 06/03/24 trazodone 50 mg tablet 50 mg PO QHS mood/sleep 06/03/24 folic acid 1 mg tablet 1 mg PO DAILY@0800 30 days #30 tabs 06/09/24 nicotine 14 mg/24 hr daily transdermal patch 14 mg transdermal DAILY 28 days #28 ea 06/09/24 thiamine HCl (vitamin B1) 100 mg tablet 100 mg PO DAILYCM 30 days #30 tabs 06/09/24
== END 2024-06-09 11:23 | disposition home or self-care (01) | DRG 776 ==
LOC: ED 21:42 → MS3 23:15
PROVIDERS: Admitting Provider Hospitalist; Emergency Provider Emergency Medicine; Visit Provider Internal Medicine
DX: F13.230 Sedative, hypnotic or anxiolytic dependence with withdrawal, uncomplicated (principal); F17.290 Nicotine dependence, other tobacco product, uncomplicated; F32.A Depression, unspecified; F41.9 Anxiety disorder, unspecified; G43.709 Chronic migraine without aura, not intractable, without status migrainosus; F43.10 Post-traumatic stress disorder, unspecified; Z79.899 Other long term (current) drug therapy
CPT/HCPCS: 36415; 80053; 80307; 82077; 85025; 90656; 99283; A4216